=== PATIENT | female | born 1950 | race Two or more races ===

== ENCOUNTER 2024-08-08 16:05 | Inpatient (IN) | payer OTHER ==
[~2024-08-08] VITALS: Ht 154.9 cm; Wt 81.6 kg
[2024-08-08] MEDS ORDERED: FENTANYL1 EAC7 TD (16:13)
[2024-08-08] MEDS ORDERED: LYRICA50 MG PO (16:13)
[2024-08-08] MEDS ORDERED: OXYCODONE HCL20 M1 PO (16:14)
--- NOTE | 2024-08-08 16:14 | NUR ---
SE RECIBE FEMINA ALERTA Y ORIENTADA X3 CUAL REFIERE PRESENTA HX MD DE LINFOEDEMA Y EN LOS ULTIMOS GARCIA SIENTE DAHLIA PRESION EN TODO EL CUERPO Y SE LE DIFICULTA RESPIRAR. NO SE OBSERVA CON DIFICULTAD PARA RESPIRAR AL MOMENTO DE TRIAGE. SE ARTHUR S/V Y SE UBICA.
[2024-08-08] MEDS ORDERED: 0.9 % SODIUM CHLORIDE 1,000 ML IV SCH (18:30)
[2024-08-08] MEDS ORDERED: DEXAMETHASONE SODIUM PHOSPHATE 4 MG/ML VIAL IV SCH (18:32)
[2024-08-08] MEDS ORDERED: FUROsemide 40 MG/4 ML VIAL IV STA (18:32)
[2024-08-08] MEDS ORDERED: DOCUSATE SODIUM 100MG CAP PO SCH (18:35)
[2024-08-08] MEDS ORDERED: fentaNYL 50 MCG PATCH.TD72 TD SCH (18:45)
[2024-08-08] MEDS ORDERED: FUROsemide 40 MG/4 ML VIAL ONE (19:22)
[2024-08-08] MEDS ORDERED: DEXAMETHASONE SODIUM PHOSPHATE 4 MG/ML VIAL ONE (19:23)
[2024-08-08 19:54] LABS: HEMATOCRIT 26.3 % (36.0-45.00); MEAN CELL VOLUME 88.5 fL (80.00-100.00); MEAN CORPUSCULAR HEMOGLOBIN 28.9 pg (27.00-32.0); MEAN CORPUSCULAR HGB CONC 32.6 g/dl (32.0-36.0); PLATELET COUNT 123 K/uL (150-450); RED BLOOD COUNT 2.97 M/uL (4.00-6.00); RED CELL DISTRIBUTION WIDTH 16.3 % (11.5-14.5)
[2024-08-08 19:55] LABS: HEMOGLOBIN 8.6 g/dL (12.0-15.00)
[2024-08-08 20:14] LABS: CALCIUM 8.6 mg/dL (8.5-10.1); CREATININE SERUM 1.16 mg/dL (0.55-1.02); GFR 45.79; POTASSIUM 5.39 mEq/L (3.5-5.1)
[2024-08-08 20:41] LABS: PH,URINE 5.5 (5.0-8.0); URINE APPEARANCE Turbid; URINE BILIRRUBIN Negative (NEGATIVE); URINE BLOOD Large; URINE COLOR Dark Yellow; URINE GLUCOSE Negative (NEGATIVE); URINE KETONE Trace (NEGATIVE); URINE LEUKOCYTE Large; URINE NITRATE Positive; URINE UROBILINOGEN 0.2 E.U./dl
[2024-08-08 20:46] LABS: URINE BACTERIA 8957.1 uL (0.0-1933); URINE CAST 1.62 uL (0.0-1.40); URINE EPITHELIAL CELLS 16.4 uL (0.0-38.8); URINE RBC 1086.2 uL (0.0-20.8); URINE WBC 5453.9 uL (0.0-23.2)
[2024-08-08] MEDS ORDERED: OxyCODONE HCL ER 10MG TAB (OxyCONTIN) PO SCH (21:00)
[2024-08-08 21:02] LABS: URINE PROTEIN 300 (NEGATIVE); URINE YEAST FEW /hpf
[2024-08-09] MEDS ORDERED: METHYLPREDNISOLONE SOD SUCC 125 MG VIAL ONE (02:49)
[2024-08-09] MEDS ORDERED: DIPHENHYDRAMINE HCL 50 MG/ML VIAL 1ML ONE (02:49)
[2024-08-09 07:06] VITALS: BP 154/74; O2SAT 99
[2024-08-09] MEDS ORDERED: AMINO ACIDS/PROTEIN HYDROLYS 30 ML BLIST.PACK PO SCH (08:00)
[2024-08-09] MEDS ORDERED: DEXAMETHASONE SODIUM PHOSPHATE 4 MG/ML VIAL ONE (08:13)
[2024-08-09] MEDS ORDERED: FUROsemide 40 MG/4 ML VIAL ONE (08:13)
[2024-08-09] MEDS ORDERED: METOLAZONE 5 MG TABLET PO SCH (09:00)
[2024-08-09] MEDS ORDERED: fentaNYL 50 MCG PATCH.TD72 TD SCH (09:00)
[2024-08-09] MEDS ORDERED: FUROsemide 40 MG/4 ML VIAL IV SCH (09:00)
[2024-08-09] MEDS ORDERED: SOD FERRIC GLUC COMPLX/SUCROSE 125 MG in 0.9 % SODIUM CHLORIDE 100 ML IV SCH (14:00)
[2024-08-09] MEDS ORDERED: CIPROFLOXACIN IN 5 % DEXTROSE 400 MG/200 ML PIGGYBAG IV STA (14:08)
[2024-08-09] MEDS ORDERED: OxyCODONE HCL ER 10MG TAB (OxyCONTIN) PO SCH ×2 (17:00→21:00)
[2024-08-09] MEDS ORDERED: OxyCODONE HCL 5 MG TABLET (ROXICODONE) PO PRN (17:30)
[2024-08-09 18:08] VITALS: BP 130/67; O2SAT 96
[2024-08-09] MEDS ORDERED: CIPROFLOXACIN IN 5 % DEXTROSE 400 MG/200 ML PIGGYBAG IV SCH (21:00)
[2024-08-10 01:50] VITALS: BP 126/61; O2SAT 99
[2024-08-10 08:32] LABS: ALBUMIN 2.5 gm/dL (3.4-5.0); BILIRUBIN TOTAL 0.44 mg/dL (0.3-1.2); CALCIUM 8.6 mg/dL (8.5-10.1); CREATININE SERUM 1.27 mg/dL (0.55-1.02); GFR 41.25; GLOBULINA 3.6 G/DL (2.4-3.5); POTASSIUM 5.16 mEq/L (3.5-5.1); TOTAL PROTEIN 6.1 gm/dL (6.4-8.2)
[2024-08-10 10:17] VITALS: BP 104/56; O2SAT 97
[2024-08-10] MEDS ORDERED: LACTULOSE 20 G/30 ML BLIST.PACK PO NR (15:30)
[2024-08-10 18:29] VITALS: BP 143/75; O2SAT 95
[2024-08-11 01:51] VITALS: BP 134/69; O2SAT 99
[2024-08-11 08:40] VITALS: BP 129/69
[2024-08-11] MEDS ORDERED: FLUCONAZOLE 200 MG TABLET PO SCH (17:00)
[2024-08-11 18:16] VITALS: BP 148/71
[2024-08-11] MEDS ORDERED: TEMAZEPAM 15 MG CAPSULE PO SCH (21:00)
[2024-08-12 01:45] VITALS: BP 127/68; O2SAT 98
[2024-08-12] MEDS ORDERED: OxyCODONE HCL 5 MG TABLET (ROXICODONE) PO PRN (03:00)
[2024-08-12 09:04] VITALS: BP 134/65
[2024-08-12 16:46] VITALS: BP 149/71
[2024-08-12] MEDS ORDERED: NA PHOS,M-B/NA PHOS,DI-BA 1 BOTTLE ENEMA RECTAL STA (20:51)
[2024-08-12] MEDS ORDERED: fentaNYL 50 MCG PATCH.TD72 TD STA (20:53)
[2024-08-12] MEDS ORDERED: DIPHENHYDRAMINE HCL 50 MG/ML VIAL 1ML ONE (22:51)
[2024-08-12] MEDS ORDERED: DIPHENHYDRAMINE HCL 50 MG/ML VIAL 1ML IV SCH (23:00)
[2024-08-12] MEDS ORDERED: OxyCODONE HCL ER 10MG TAB (OxyCONTIN) PO STA (23:38)
[2024-08-13 01:53] VITALS: BP 138/70; O2SAT 96
[2024-08-13] MEDS ORDERED: SOD FERRIC GLUC COMPLX/SUCROSE 62.5 MG/5 ML AMPUL IV ONE (08:25)
[2024-08-13 09:52] VITALS: BP 128/64; O2SAT 97
[2024-08-13 17:49] VITALS: BP 129/63
[2024-08-13] MEDS ORDERED: OxyCODONE HCL ER 10MG TAB (OxyCONTIN) PO SCH (21:00)
[2024-08-14 04:01] VITALS: BP 119/67
[2024-08-14] MEDS ORDERED: SOD FERRIC GLUC COMPLX/SUCROSE 62.5 MG/5 ML AMPUL IV ONE (08:02)
[2024-08-14 09:33] VITALS: BP 128/60
[2024-08-14] MEDS ORDERED: Diflucan 200MG TABLE PO (12:09)
[2024-08-14] MEDS ORDERED: PREGABALIN50 MG PO (12:10)
[2024-08-14] MEDS ORDERED: RESTORIL15 MG PO (12:11)
[2024-08-14] MEDS ORDERED: FENTANYL1 EAC4 TD (12:12)
[2024-08-14] MEDS ORDERED: METOLAZONE5 MG PO (12:13)
[2024-08-14] MEDS ORDERED: PROTEINEX-18 LI30 ML PO (12:13)
[2024-08-14] MEDS ORDERED: OXYCODONE HCL20 M1 PO (12:14)
[2024-08-14] MEDS ORDERED: LASIX40 MG PO (12:15)
[2024-08-14] MEDS ORDERED: DEXAMETHASONE4 MG PO (12:16)
[2024-08-14] MEDS ORDERED: FLUCONAZOLE200 MG PO (12:17)
[2024-08-14] MEDS ORDERED: Pregabalin 50 MG CAPSULE PO SCH (14:00)
[2024-08-15] MEDS ORDERED: fentaNYL 50 MCG PATCH.TD72 TD SCH (09:00)
== END 2024-08-14 13:50 | DRG 607 ==
LOC: ER 16:05 → SURH 21:11 → MEDJ 21:11 → SEC-K 08-09 00:19 → MEDJ 08-09 08:20
PROVIDERS: ADMIT Internal Medicine Hematology & Oncology; ATTEND Internal Medicine Hematology & Oncology
PROC: BW21YZZ Computerized Tomography (CT Scan) of Abdomen and Pelvis using Other Contrast (ICD-10-PCS; principal; 2024-08-08)
DX: I89.0 Lymphedema, not elsewhere classified (principal); C78.6 Secondary malignant neoplasm of retroperitoneum and peritoneum; B37.49 Other urogenital candidiasis; C76.2 Malignant neoplasm of abdomen; C55 Malignant neoplasm of uterus, part unspecified; G89.3 Neoplasm related pain (acute) (chronic); R60.1 Generalized edema; D64.89 Other specified anemias; B95.7 Other staphylococcus as the cause of diseases classified elsewhere; Z92.21 Personal history of antineoplastic chemotherapy